=== PATIENT | female | born 1930 | race Caucasian/White ===

== ENCOUNTER 2016-11-25 11:33 | Inpatient (IN) | payer MEDICARE, BC ==
[~2016-11-25] VITALS: Ht 170.2 cm; Wt 84.7 kg
[~2016-11-25 11:33] MED LIST: ACET-1757 PO; ASPI-496 PO; ATOR80TA75 PO; CARV12.52 PO; CHOL200012 PO; DIVA500T2 PO; ESTR0.6246 PO; FLUT1DIS IH; LACT1CAP35 PO; LEVO500T8 PO; LOSA25TA5 PO; METH1TAB21 PO; MIRA50TA PO; NITR0.4T SL; Nifedipine PO; OMEG500C3 PO; OMEP-110 PO; OXCA300T3 PO; PENT100C2 PO; calcium PO
[2016-11-25] MEDS ORDERED: ONDANSETRON ODT 4 MG ONE (11:49)
[2016-11-25] MEDS ORDERED: ONDANSETRON ODT 4 MG PO ONE (12:00)
[2016-11-25 12:41] LABS: BLOOD UREA NITROGEN 16 mg/dL (7-18)
[2016-11-25] MEDS ORDERED: SODIUM CHLORIDE 0.9% 1,000 ML IV ONE (12:45)
[2016-11-25] MEDS ORDERED: SODIUM CHLORIDE FLUSH 10ML SYR IVF ONE (13:00)
[2016-11-25] MEDS ORDERED: GABA100C PO (13:17)
[2016-11-25] MEDS ORDERED: SODIUM CHLORIDE 0.9% 1,000 ML IV SCH (15:18)
[2016-11-25] MEDS ORDERED: LABETALOL 5MG/ML, 20ML IVPush PRN (15:30)
[2016-11-25] MEDS ORDERED: morphine SULFATE 10 MG/ML, 1ML IVPush PRN (15:30)
[2016-11-25] MEDS ORDERED: DOCUSATE 100 MG CAPSULE PO PRN (15:30)
[2016-11-25] MEDS ORDERED: TEMPLATE NON-FORMULARY MED. (Mirabegron** (Myrbetriq**) 50 MG) PO SCH (15:30)
[2016-11-25] MEDS ORDERED: GUAIFENESIN/DM 200-20MG, 10ML UDC PO PRN (15:30)
[2016-11-25] MEDS ORDERED: NITROGLYCERIN 0.4 MG BOTTLE (25 TABS) SL PRN (15:30)
[2016-11-25] MEDS ORDERED: HYDROcodone/APAP 5/325 TABLET PO PRN (15:30)
[2016-11-25] MEDS ORDERED: ONDANSETRON 2MG/ML, 2ML IVPush PRN (15:30)
[2016-11-25] MEDS ORDERED: ACETAMINOPHEN 325 MG TABLET PO PRN (15:30)
[2016-11-25 16:40] LABS: IS PT STATUS REG ER OR PRE ER? NO
[2016-11-25 19:58] VITALS: BP 99/58
[2016-11-25 20:26] LABS: BLOOD UREA NITROGEN 12 mg/dL (7-18)
[2016-11-25 20:30] LABS: IS PT STATUS REG ER OR PRE ER? NO
[2016-11-26] MEDS: OMEPRAZOLE 20 MG CAPSULE.DR PO SCH ×3 (00:32→21:14)
[2016-11-26] MEDS: ATORVASTATIN 80 MG TABLET PO SCH ×2 (00:32→21:14)
[2016-11-26] MEDS: DIVALPROEX 500 MG TABLET.DR PO SCH ×3 (00:32→21:13)
[2016-11-26] MEDS: CARVEDILOL 6.25 MG TABLET PO SCH ×3 (00:33→21:13)
[2016-11-26] MEDS: ENOXAPARIN 40 MG/0.4 ML SQ SCH ×2 (00:33→21:14)
[2016-11-26] MEDS: OXCARBAZEPINE 150 MG TABLET PO SCH ×3 (00:33→21:14)
[2016-11-26] MEDS ORDERED: MIRABEGRON PO SCH (01:00)
[2016-11-26 01:26] VITALS: BP 117/70
[2016-11-26 01:49] LABS: BLOOD UREA NITROGEN 11 mg/dL (7-18)
[2016-11-26 02:10] LABS: IS PT STATUS REG ER OR PRE ER? NO
[2016-11-26] MEDS: metroNIDAZOLE 500 MG TABLET PO SCH ×4 (02:19→21:13)
[2016-11-26 07:55] VITALS: BP_SYST 120; BP_SYST 122; BP_SYST 128; BP_DIAS 68; BP_DIAS 72; BP_DIAS 78
[2016-11-26] MEDS ORDERED: POTASSIUM CHLORIDE 20 MEQ TAB.ER.PRT PO ONE (08:30)
[2016-11-26] MEDS ORDERED: MAGNESIUM SULFATE PMX 4GM/100M 100 ML IV ONE (08:30)
[2016-11-26] MEDS: LOSARTAN 25MG TABLET PO SCH (09:00)
[2016-11-26] MEDS: METHENAMINE HIPPURATE 1 GM TABLET PO SCH (09:00)
[2016-11-26] MEDS: ASPIRIN 81 MG TABLET EC PO SCH (09:00)
[2016-11-26] MEDS: OMEGA-3/FISH OIL CAPSULE PO SCH (09:00)
[2016-11-26] MEDS: ESTROGENS CONJUGATED 0.625 MG TABLET PO SCH (09:00)
[2016-11-26] MEDS: PENTOSAN POLYSULFATE SODIUM 100 MG PO SCH (09:00)
[2016-11-26] MEDS: CHOLECALCIFEROL 1,000 UNIT TABLET PO SCH (09:00)
[2016-11-26] MEDS: FLUTICASONE/VILANTEROL 100-25MCG/INH INH SCH (09:00)
[2016-11-26] MEDS: GABAPENTIN 100 MG CAPSULE PO SCH (09:00)
[2016-11-26] MEDS ORDERED: OMEGA-3/FISH OIL CAPSULE PO SCH (09:00)
[2016-11-26] MEDS ORDERED: TEMPLATE NON-FORMULARY MED. (Pentosan Polysulfate Sodium (Elmiron) 100 MG) PO SCH (09:00)
[2016-11-26 17:52] VITALS: BP 106/64
[2016-11-26 18:43] VITALS: BP 103/62
[2016-11-27 03:42] VITALS: BP 107/64
[2016-11-27 05:38] LABS: BLOOD UREA NITROGEN 9 mg/dL (7-18)
[2016-11-27 07:34] VITALS: BP 135/71
[2016-11-27] MEDS: FLUTICASONE/VILANTEROL 100-25MCG/INH INH SCH (08:35)
[2016-11-27] MEDS: ESTROGENS CONJUGATED 0.625 MG TABLET PO SCH (08:36)
[2016-11-27] MEDS: OXCARBAZEPINE 150 MG TABLET PO SCH ×2 (08:36→20:21)
[2016-11-27] MEDS: LOSARTAN 25MG TABLET PO SCH (08:36)
[2016-11-27] MEDS: CHOLECALCIFEROL 1,000 UNIT TABLET PO SCH (08:36)
[2016-11-27] MEDS: OMEGA-3/FISH OIL CAPSULE PO SCH (08:36)
[2016-11-27] MEDS: OMEPRAZOLE 20 MG CAPSULE.DR PO SCH ×2 (08:37→20:21)
[2016-11-27] MEDS: ASPIRIN 81 MG TABLET EC PO SCH (08:37)
[2016-11-27] MEDS: GABAPENTIN 100 MG CAPSULE PO SCH (08:37)
[2016-11-27] MEDS: metroNIDAZOLE 500 MG TABLET PO SCH ×3 (08:37→20:21)
[2016-11-27] MEDS: METHENAMINE HIPPURATE 1 GM TABLET PO SCH (08:37)
[2016-11-27] MEDS: CARVEDILOL 6.25 MG TABLET PO SCH ×2 (08:38→20:21)
[2016-11-27] MEDS: DIVALPROEX 500 MG TABLET.DR PO SCH ×2 (08:39→20:21)
[2016-11-27] MEDS: PENTOSAN POLYSULFATE SODIUM 100 MG PO SCH (08:50)
[2016-11-27] MEDS ORDERED: SODIUM CHLORIDE 0.9% 1,000 ML IV SCH (11:30)
[2016-11-27 14:00] VITALS: BP 116/69
[2016-11-27 18:49] VITALS: BP 120/72
[2016-11-27] MEDS: ENOXAPARIN 40 MG/0.4 ML SQ SCH (20:20)
[2016-11-27] MEDS: ATORVASTATIN 80 MG TABLET PO SCH (20:21)
[2016-11-28 02:00] VITALS: BP 115/68
[2016-11-28 05:55] LABS: BLOOD UREA NITROGEN 11 mg/dL (7-18)
[2016-11-28 07:51] VITALS: BP 118/63
[2016-11-28] MEDS: PENTOSAN POLYSULFATE SODIUM 100 MG PO SCH (09:00)
[2016-11-28] MEDS: ESTROGENS CONJUGATED 0.625 MG TABLET PO SCH (09:17)
[2016-11-28] MEDS: OMEPRAZOLE 20 MG CAPSULE.DR PO SCH ×2 (09:17→20:21)
[2016-11-28] MEDS: FLUTICASONE/VILANTEROL 100-25MCG/INH INH SCH (09:17)
[2016-11-28] MEDS: OXCARBAZEPINE 150 MG TABLET PO SCH ×2 (09:18→20:21)
[2016-11-28] MEDS: CARVEDILOL 6.25 MG TABLET PO SCH ×2 (09:18→20:21)
[2016-11-28] MEDS: LOSARTAN 25MG TABLET PO SCH (09:18)
[2016-11-28] MEDS: OMEGA-3/FISH OIL CAPSULE PO SCH (09:18)
[2016-11-28] MEDS: DIVALPROEX 500 MG TABLET.DR PO SCH ×2 (09:18→20:21)
[2016-11-28] MEDS: ASPIRIN 81 MG TABLET EC PO SCH (09:20)
[2016-11-28] MEDS: metroNIDAZOLE 500 MG TABLET PO SCH ×3 (09:20→20:21)
[2016-11-28] MEDS: GABAPENTIN 100 MG CAPSULE PO SCH (09:20)
[2016-11-28] MEDS: METHENAMINE HIPPURATE 1 GM TABLET PO SCH (09:20)
[2016-11-28] MEDS: CHOLECALCIFEROL 1,000 UNIT TABLET PO SCH (09:21)
[2016-11-28] MEDS ORDERED: SODIUM CHLORIDE 0.9% 1,000 ML IV SCH (10:00)
[2016-11-28] MEDS: SODIUM CHLORIDE 1 GM TABLET PO SCH ×3 (10:16→20:20)
[2016-11-28 14:12] VITALS: BP 118/73
[2016-11-28 19:00] VITALS: BP 116/68
[2016-11-28] MEDS: ATORVASTATIN 80 MG TABLET PO SCH (20:21)
[2016-11-28] MEDS: ENOXAPARIN 40 MG/0.4 ML SQ SCH (20:22)
[2016-11-29 00:02] VITALS: BP 108/66
[2016-11-29 06:38] LABS: BLOOD UREA NITROGEN 10 mg/dL (7-18)
[2016-11-29 08:10] VITALS: BP 136/76
[2016-11-29] MEDS: PENTOSAN POLYSULFATE SODIUM 100 MG PO SCH (09:00)
[2016-11-29] MEDS: FLUTICASONE/VILANTEROL 100-25MCG/INH INH SCH (09:34)
[2016-11-29] MEDS: LOSARTAN 25MG TABLET PO SCH (09:35)
[2016-11-29] MEDS: GABAPENTIN 100 MG CAPSULE PO SCH (09:35)
[2016-11-29] MEDS: OXCARBAZEPINE 150 MG TABLET PO SCH (09:35)
[2016-11-29] MEDS: DIVALPROEX 500 MG TABLET.DR PO SCH (09:36)
[2016-11-29] MEDS: metroNIDAZOLE 500 MG TABLET PO SCH ×2 (09:37→15:14)
[2016-11-29] MEDS: CHOLECALCIFEROL 1,000 UNIT TABLET PO SCH (09:37)
[2016-11-29] MEDS: ASPIRIN 81 MG TABLET EC PO SCH (09:37)
[2016-11-29] MEDS: SODIUM CHLORIDE 1 GM TABLET PO SCH ×2 (09:38→15:14)
[2016-11-29] MEDS: CARVEDILOL 6.25 MG TABLET PO SCH (09:38)
[2016-11-29] MEDS: OMEPRAZOLE 20 MG CAPSULE.DR PO SCH (09:38)
[2016-11-29] MEDS: ESTROGENS CONJUGATED 0.625 MG TABLET PO SCH (09:39)
[2016-11-29] MEDS: OMEGA-3/FISH OIL CAPSULE PO SCH (09:39)
[2016-11-29] MEDS: METHENAMINE HIPPURATE 1 GM TABLET PO SCH (09:41)
[2016-11-29] MEDS ORDERED: MAGNESIUM SULFATE PMX 4GM/100M 100 ML IV ONE (10:30)
[2016-11-29 12:50] VITALS: BP 106/66
[2016-11-29] MEDS ORDERED: METR500T PO (13:52)
[2016-11-29] MEDS ORDERED: DOCU-30 PO (13:52)
[2016-11-29] MEDS ORDERED: SODI1TAB PO (13:52)
== END 2016-11-29 17:04 | DRG 372 ==
LOC: ED 13:11 → EDIP 13:38 → 4EST 15:25
PROVIDERS: ADMIT Internal Medicine; ATTEND Internal Medicine
DX: A04.7 Enterocolitis due to Clostridium difficile (principal); E87.1 Hypo-osmolality and hyponatremia; I50.22 Chronic systolic (congestive) heart failure; E83.42 Hypomagnesemia; E87.6 Hypokalemia; E78.5 Hyperlipidemia, unspecified; Z88.8 Allergy status to other drugs, medicaments and biological substances; E86.1 Hypovolemia; G40.909 Epilepsy, unspecified, not intractable, without status epilepticus; G89.11 Acute pain due to trauma; G89.29 Other chronic pain; H54.7 Unspecified visual loss; I11.0 Hypertensive heart disease with heart failure; K21.9 Gastro-esophageal reflux disease without esophagitis; K22.4 Dyskinesia of esophagus; M51.36 Other intervertebral disc degeneration, lumbar region; S39.012A Strain of muscle, fascia and tendon of lower back, initial encounter; W18.30XA Fall on same level, unspecified, initial encounter; Z79.890 Hormone replacement therapy; Z87.440 Personal history of urinary (tract) infections; Z90.710 Acquired absence of both cervix and uterus; Z96.653 Presence of artificial knee joint, bilateral; I44.7 Left bundle-branch block, unspecified
CPT/HCPCS: 36415; 72110; 80048; 80061; 81001; 82533; 83735; 84100; 84443; 84484; 85025; 87077; 87086; 87186; 87324; 93005; 93306; 96360; 96361; J1650; Q0162; J3475; J7030

== ENCOUNTER → 2017-02-22 | Outpatient (CLI) | payer MEDICARE, BC ==
[~2017-02-22] MED LIST changes: +ATOR-2 PO; -ATOR80TA75 PO; -CHOL200012 PO; +CHOL200074 PO; +DOCU-131 PO; +GABA100C PO; +METR500T PO; +SODI1TAB PO
== END | disposition home or self-care (01) ==
LOC: CFH 13:28 → EDSTATUS 13:30
PROVIDERS: ATTEND Physical Medicine & Rehabilitation
DX: M51.36 Other intervertebral disc degeneration, lumbar region (principal); M41.86 Other forms of scoliosis, lumbar region; M47.896 Other spondylosis, lumbar region; M43.16 Spondylolisthesis, lumbar region; Z85.3 Personal history of malignant neoplasm of breast
CPT/HCPCS: 72131

== ENCOUNTER → 2017-06-07 | Outpatient (CLI) | payer MEDICARE, BC | END | disposition home or self-care (01) | LOC: CFH 12:12 | PROVIDERS: ATTEND Internal Medicine | DX: J84.10 Pulmonary fibrosis, unspecified (principal); M47.814 Spondylosis without myelopathy or radiculopathy, thoracic region; M19.011 Primary osteoarthritis, right shoulder; M19.012 Primary osteoarthritis, left shoulder | CPT/HCPCS: 71020 ==

== ENCOUNTER 2017-12-08 12:24 | Inpatient (IN) | payer MEDICARE, BC ==
[~2017-12-08] VITALS: Ht 170.2 cm; Wt 87.2 kg
[2017-12-08] MEDS ORDERED: MORPHINE SULFATE 4 MG/ML, 1ML ONE ×3 (12:48→14:31)
[2017-12-08] MEDS ORDERED: ONDANSETRON 2MG/ML, 2ML ONE (12:48)
[2017-12-08] MEDS: MORPHINE SULFATE 4 MG/ML, 1ML IVPush PRN ×2 (12:50→13:42)
[2017-12-08] MEDS ORDERED: SODIUM CHLORIDE FLUSH 10ML SYR IVF ONE (13:00)
[2017-12-08] MEDS ORDERED: ONDANSETRON 2MG/ML, 2ML IVPush ONE (13:00)
[2017-12-08] MEDS ORDERED: PLEASE ENTER HEIGHT AND WEIGHT MC SCH (13:00)
[2017-12-08 13:09] LABS: BASOPHILS # (AUTO) 0.01 x10^3/uL (0-0.1); BASOPHILS % (AUTO) 0 % (0-1); EOSINOPHILS # (AUTO) 0.06 x10^3/uL (0-0.4); EOSINOPHILS % (AUTO) 1 % (1-7); LYMPHOCYTES # (AUTO) 1.89 x10^3/uL (1-3.4); LYMPHOCYTES % (AUTO) 28 % (22-44); MD NO; MEAN CORPUSCULAR HEMOGLOBIN 30.8 pg (27.0-34.8); MEAN CORPUSCULAR HGB CONC 33.4 g/dL (32.4-35.8); MEAN CORPUSCULAR VOLUME 92.3 fL (80-100); MEAN PLATELET VOLUME 8.3 fL (7.4-10.4); MONOCYTES # (AUTO) 0.41 x10^3/uL (0.2-0.8); MONOCYTES % (AUTO) 6 % (2-9); NEUTROPHILS % (AUTO) 65 % (42-75); PLATELET COUNT 124 x10^3/uL (130-400); RED BLOOD COUNT 4.58 x10^6/uL (3.82-5.3); RED CELL DISTRIBUTION WIDTH 13.9 % (9.6-15.2)
[2017-12-08 13:18] LABS: ALBUMIN 3.1 g/dL (3.4-5.0); ANION GAP 8 mmol/L (5-15); CALCIUM 8.3 mg/dL (8.5-10.1); CHLORIDE 97 mmol/L (98-107)
[2017-12-08 13:23] LABS: ALANINE AMINOTRANSFERASE 14 U/L (12-78); ALKALINE PHOSPHATASE 45 U/L (45-117); BILIRUBIN,TOTAL 0.5 mg/dL (0.2-1.0); CREATININE 0.64 mg/dL (0.55-1.02); TOTAL PROTEIN 5.8 g/dL (6.4-8.2)
[2017-12-08] MEDS ORDERED: PRO AIR (13:53)
[2017-12-08] MEDS ORDERED: ATOR40TA78 PO (13:53)
[2017-12-08] MEDS ORDERED: OMEP20TA62 PO (13:53)
[2017-12-08 14:10] LABS: INTERNATIONAL NORMALIZED RATIO 1.05 (0.93-1.1); PROTHROMBIN TIME 10.8 Seconds (9.6-11.5)
[2017-12-08] MEDS ORDERED: MORPHINE SULFATE 4 MG/ML, 1ML IVPush ONE (14:30)
[2017-12-08] MEDS ORDERED: LABETALOL 5MG/ML, 20ML IVPush PRN (15:00)
[2017-12-08] MEDS ORDERED: ONDANSETRON ODT 4 MG PO PRN (15:00)
[2017-12-08] MEDS ORDERED: POLYETHYLENE GLYCOL 17 GM PACKET PO PRN (15:00)
[2017-12-08] MEDS ORDERED: ONDANSETRON 2MG/ML, 2ML IVPush PRN (15:00)
[2017-12-08] MEDS ORDERED: TEMPLATE NON-FORMULARY MED. (Mirabegron** (Myrbetriq**) 50 MG) PO SCH (15:30)
[2017-12-08] MEDS ORDERED: NITROGLYCERIN 0.4 MG BOTTLE (25 TABS) SL PRN (15:30)
[2017-12-08 15:54] LABS: FREE T4 (FREE THYROXINE) 0.88 ng/dL (0.76-1.46)
[2017-12-08 16:10] VITALS: BP 123/75
[2017-12-08] MEDS: morphine SULFATE 10 MG/ML, 1ML IVPush PRN ×2 (17:26→20:52)
[2017-12-08 19:27] VITALS: BP 129/80
[2017-12-08] MEDS: CARVEDILOL 6.25 MG TABLET PO SCH (20:51)
[2017-12-08] MEDS: DIVALPROEX 500 MG TABLET.DR PO SCH (20:52)
[2017-12-08] MEDS: OXCARBAZEPINE 300MG TABLET PO SCH (20:52)
[2017-12-08] MEDS: ATORVASTATIN 40 MG TABLET PO SCH (20:52)
[2017-12-08] MEDS ORDERED: OMEPRAZOLE 20 MG CAPSULE.DR PO SCH (21:00)
[2017-12-08] MEDS ORDERED: ATORVASTATIN 80 MG TABLET PO SCH (21:00)
[2017-12-09 03:13] VITALS: BP 116/65
[2017-12-09] MEDS: morphine SULFATE 10 MG/ML, 1ML IVPush PRN ×2 (03:39→10:15)
[2017-12-09 05:15] LABS: BASOPHILS # (AUTO) 0.02 x10^3/uL (0-0.1); BASOPHILS % (AUTO) 0 % (0-1); EOSINOPHILS # (AUTO) 0.06 x10^3/uL (0-0.4); EOSINOPHILS % (AUTO) 1 % (1-7); LYMPHOCYTES # (AUTO) 1.75 x10^3/uL (1-3.4); LYMPHOCYTES % (AUTO) 20 % (22-44); MD NO; MEAN CORPUSCULAR HEMOGLOBIN 31.1 pg (27.0-34.8); MEAN CORPUSCULAR HGB CONC 33.8 g/dL (32.4-35.8); MEAN PLATELET VOLUME 8.3 fL (7.4-10.4); MONOCYTES # (AUTO) 0.59 x10^3/uL (0.2-0.8); MONOCYTES % (AUTO) 7 % (2-9); NEUTROPHILS # (AUTO) 6.31 x10^3/uL (1.8-6.8); NEUTROPHILS % (AUTO) 72 % (42-75); PLATELET COUNT 117 x10^3/uL (130-400); RED BLOOD COUNT 4.47 x10^6/uL (3.82-5.3); RED CELL DISTRIBUTION WIDTH 13.7 % (9.6-15.2)
[2017-12-09 05:23] LABS: CHLORIDE 96 mmol/L (98-107)
[2017-12-09 05:39] LABS: ALANINE AMINOTRANSFERASE 14 U/L (12-78); ALBUMIN 2.9 g/dL (3.4-5.0); ALKALINE PHOSPHATASE 42 U/L (45-117); ANION GAP 8 mmol/L (5-15); BILIRUBIN,TOTAL 0.6 mg/dL (0.2-1.0); CALCIUM 8.1 mg/dL (8.5-10.1); CREATININE 0.64 mg/dL (0.55-1.02); TOTAL PROTEIN 5.3 g/dL (6.4-8.2)
[2017-12-09 08:02] VITALS: BP 107/55
[2017-12-09] MEDS: OMEPRAZOLE 20 MG CAPSULE.DR PO SCH (09:00)
[2017-12-09] MEDS: GABAPENTIN 100 MG CAPSULE PO SCH (09:00)
[2017-12-09] MEDS ORDERED: ASPIRIN 81 MG TABLET EC PO SCH (09:00)
[2017-12-09] MEDS: LOSARTAN 50MG TABLET PO SCH (09:00)
[2017-12-09] MEDS: SENNA/DOCUSATE TABLET PO SCH (09:00)
[2017-12-09] MEDS: TEMPLATE NON-FORMULARY MED. (Mirabegron** (Myrbetriq**) 50 MG) PO SCH (09:00)
[2017-12-09] MEDS: DIVALPROEX 500 MG TABLET.DR PO SCH ×2 (10:07→21:41)
[2017-12-09] MEDS: CARVEDILOL 6.25 MG TABLET PO SCH ×2 (10:08→21:41)
[2017-12-09] MEDS: OXCARBAZEPINE 300MG TABLET PO SCH ×2 (10:08→21:41)
[2017-12-09] MEDS ORDERED: LABETALOL 5MG/ML, 20ML IV PRN (11:30)
[2017-12-09] MEDS ORDERED: OXYcodone 5 MG/5 ML ORAL.SOL UDC PO PRN (11:30)
[2017-12-09] MEDS ORDERED: ONDANSETRON ODT 8 MG PO PRN (11:30)
[2017-12-09] MEDS ORDERED: PROMETHAZINE 12.5 MG SUPP PR PRN (11:30)
[2017-12-09] MEDS ORDERED: FENTANYL PF 100 MCG/2ML IV PRN (11:30)
[2017-12-09] MEDS ORDERED: HYDROmorphone 1 MG/ML, 1ML IV PRN (11:30)
[2017-12-09] MEDS ORDERED: ACETAMINOPHEN 325 MG TABLET PO PRN (11:30)
[2017-12-09] MEDS ORDERED: MORPHINE SULFATE 4 MG/ML, 1ML IVPush PRN (11:30)
[2017-12-09] MEDS ORDERED: hydrALAzine 20 MG/ML, 1ML IV PRN (11:30)
[2017-12-09] MEDS ORDERED: NEOSPORIN OINT, 15GM ONE (12:02)
[2017-12-09] MEDS ORDERED: FENTANYL PF 250 MCG/5ML ONE (12:12)
[2017-12-09] MEDS ORDERED: ROCURONIUM 10MG/ML,5ML ONE ×2 (12:38→13:44)
[2017-12-09] MEDS ORDERED: TRANEXAMIC ACID 100 MG/ML, 10ML ONE (12:46)
[2017-12-09] MEDS ORDERED: CEFAZOLIN 1,000 MG ONE (12:48)
[2017-12-09] MEDS ORDERED: DEXAMETHASONE 4 MG/ML, 1ML ONE (12:55)
[2017-12-09] MEDS ORDERED: ONDANSETRON 2MG/ML, 2ML ONE (13:44)
[2017-12-09] MEDS ORDERED: PROPOFOL 10 MG/ML, 20ML ONE (13:44)
[2017-12-09] MEDS ORDERED: OXYcodone 5 MG/5 ML ORAL.SOL UDC ONE (14:39)
[2017-12-09] MEDS ORDERED: MORPHINE SULFATE 4 MG/ML, 1ML ONE (14:53)
[2017-12-09] MEDS ORDERED: ALBUTEROL SULFATE 2.5 MG/3 ML ONE (15:00)
[2017-12-09] MEDS ORDERED: LORazepam 2 MG/ML, 1ML ONE (15:24)
[2017-12-09 15:45] VITALS: BP 106/69
[2017-12-09] MEDS ORDERED: LORazepam 2 MG/ML, 1ML IVPush ONE (16:00)
[2017-12-09] MEDS: FLUTICASONE/VILANTEROL 100-25MCG/INH INH SCH (17:00)
[2017-12-09 19:35] VITALS: BP 105/68
[2017-12-09] MEDS: CEFAZOLIN PMX 1GM/50ML 50 ML IVPB SCH (21:40)
[2017-12-09] MEDS: ATORVASTATIN 40 MG TABLET PO SCH (21:41)
[2017-12-09 23:30] VITALS: BP 110/67
[2017-12-10 03:07] VITALS: BP 94/55
[2017-12-10] MEDS: morphine SULFATE 10 MG/ML, 1ML IVPush PRN (05:13)
[2017-12-10] MEDS: CEFAZOLIN PMX 1GM/50ML 50 ML IVPB SCH (05:19)
[2017-12-10 05:20] LABS: BASOPHILS # (AUTO) 0.02 x10^3/uL (0-0.1); BASOPHILS % (AUTO) 0 % (0-1); EOSINOPHILS # (AUTO) 0.03 x10^3/uL (0-0.4); EOSINOPHILS % (AUTO) 0 % (1-7); LYMPHOCYTES # (AUTO) 1.86 x10^3/uL (1-3.4); LYMPHOCYTES % (AUTO) 19 % (22-44); MD NO; MEAN CORPUSCULAR HEMOGLOBIN 31.5 pg (27.0-34.8); MEAN CORPUSCULAR HGB CONC 34.3 g/dL (32.4-35.8); MEAN CORPUSCULAR VOLUME 91.7 fL (80-100); MEAN PLATELET VOLUME 8.4 fL (7.4-10.4); MONOCYTES # (AUTO) 0.76 x10^3/uL (0.2-0.8); MONOCYTES % (AUTO) 8 % (2-9); NEUTROPHILS # (AUTO) 7.09 x10^3/uL (1.8-6.8); NEUTROPHILS % (AUTO) 73 % (42-75); PLATELET COUNT 102 x10^3/uL (130-400); RED BLOOD COUNT 4.21 x10^6/uL (3.82-5.3); RED CELL DISTRIBUTION WIDTH 13.9 % (9.6-15.2)
[2017-12-10 05:21] LABS: CALCIUM 8.3 mg/dL (8.5-10.1); CHLORIDE 94 mmol/L (98-107)
[2017-12-10 05:25] LABS: ALBUMIN 2.8 g/dL (3.4-5.0); ANION GAP 7 mmol/L (5-15); CREATININE 0.59 mg/dL (0.55-1.02)
[2017-12-10] MEDS: FLUTICASONE/VILANTEROL 100-25MCG/INH INH SCH (08:56)
[2017-12-10] MEDS: DIVALPROEX 500 MG TABLET.DR PO SCH ×2 (08:57→21:10)
[2017-12-10] MEDS: OXCARBAZEPINE 300MG TABLET PO SCH ×2 (08:57→21:11)
[2017-12-10] MEDS: SENNA/DOCUSATE TABLET PO SCH (08:57)
[2017-12-10] MEDS: OMEPRAZOLE 20 MG CAPSULE.DR PO SCH (08:57)
[2017-12-10] MEDS: GABAPENTIN 100 MG CAPSULE PO SCH (08:57)
[2017-12-10] MEDS: TEMPLATE NON-FORMULARY MED. (Mirabegron** (Myrbetriq**) 50 MG) PO SCH (09:00)
[2017-12-10 09:17] VITALS: BP 98/59
[2017-12-10] MEDS: CARVEDILOL 6.25 MG TABLET PO SCH ×2 (09:30→21:00)
[2017-12-10] MEDS: LOSARTAN 50MG TABLET PO SCH (09:32)
[2017-12-10 09:34] VITALS: BP 101/65
[2017-12-10 14:27] VITALS: BP 95/58
[2017-12-10] MEDS: HYDROcodone/APAP 5/325 TABLET PO PRN (14:56)
[2017-12-10] MEDS ORDERED: LACTATED RINGERS 500 ML IVBOLUS ONE (18:00)
[2017-12-10 19:45] VITALS: BP 108/64
[2017-12-10 20:19] VITALS: BP 91/54
[2017-12-10] MEDS: ASPIRIN 81 MG TABLET EC PO SCH (21:11)
[2017-12-10] MEDS: ATORVASTATIN 40 MG TABLET PO SCH (21:11)
[2017-12-11 03:16] VITALS: BP 96/57
[2017-12-11] MEDS ORDERED: LACTATED RINGERS 500 ML IVBOLUS ONE (03:30)
[2017-12-11] MEDS: ASPIRIN 81 MG TABLET EC PO SCH ×2 (06:41→18:49)
[2017-12-11 07:30] VITALS: BP_SYST 105; BP_SYST 97; BP_DIAS 57; BP_DIAS 66
[2017-12-11] MEDS: SENNA/DOCUSATE TABLET PO SCH (08:58)
[2017-12-11] MEDS: OXCARBAZEPINE 300MG TABLET PO SCH ×2 (08:58→21:08)
[2017-12-11] MEDS: OMEPRAZOLE 20 MG CAPSULE.DR PO SCH (08:58)
[2017-12-11] MEDS: DIVALPROEX 500 MG TABLET.DR PO SCH ×2 (08:58→21:08)
[2017-12-11] MEDS: CARVEDILOL 3.125 MG TABLET PO SCH ×2 (08:59→20:34)
[2017-12-11] MEDS: GABAPENTIN 100 MG CAPSULE PO SCH (09:00)
[2017-12-11] MEDS: LOSARTAN 25MG TABLET PO SCH (09:00)
[2017-12-11] MEDS: TEMPLATE NON-FORMULARY MED. (Mirabegron** (Myrbetriq**) 50 MG) PO SCH (09:00)
[2017-12-11] MEDS: FLUTICASONE/VILANTEROL 100-25MCG/INH INH SCH (09:05)
[2017-12-11 13:17] VITALS: BP 102/63
[2017-12-11] MEDS ORDERED: CARVEDILOL 3.125 MG TABLET PO ONE (15:00)
[2017-12-11] MEDS ORDERED: FUROSEMIDE 20 MG/2 ML IV ONE (15:30)
[2017-12-11] MEDS: HYDROcodone/APAP 5/325 TABLET PO PRN (16:19)
[2017-12-11 19:18] VITALS: BP 94/56
[2017-12-11] MEDS: ATORVASTATIN 40 MG TABLET PO SCH (21:08)
[2017-12-12 02:18] VITALS: BP 110/64
[2017-12-12] MEDS: ASPIRIN 81 MG TABLET EC PO SCH (06:17)
[2017-12-12 06:57] VITALS: BP 110/72
[2017-12-12] MEDS ORDERED: LOSA25TA5 PO (07:12)
[2017-12-12 07:43] LABS: ALBUMIN 2.1 g/dL (3.4-5.0); ANION GAP 8 mmol/L (5-15); CALCIUM 7.7 mg/dL (8.5-10.1); CHLORIDE 91 mmol/L (98-107); CREATININE 0.41 mg/dL (0.55-1.02)
[2017-12-12 08:03] LABS: MEAN CORPUSCULAR HEMOGLOBIN 31.1 pg (27.0-34.8); MEAN CORPUSCULAR HGB CONC 33.9 g/dL (32.4-35.8); MEAN CORPUSCULAR VOLUME 91.8 fL (80-100); RED BLOOD COUNT 3.69 x10^6/uL (3.82-5.3); RED CELL DISTRIBUTION WIDTH 13.7 % (9.6-15.2)
[2017-12-12 08:06] LABS: BASOPHILS # (AUTO) 0.03 x10^3/uL (0-0.1); BASOPHILS % (AUTO) 0 % (0-1); EOSINOPHILS # (AUTO) 0.14 x10^3/uL (0-0.4); EOSINOPHILS % (AUTO) 2 % (1-7); LYMPHOCYTES # (AUTO) 1.16 x10^3/uL (1-3.4); LYMPHOCYTES % (AUTO) 13 % (22-44); MD SCAN; MEAN PLATELET VOLUME 8.8 fL (7.4-10.4); MONOCYTES # (AUTO) 0.65 x10^3/uL (0.2-0.8); MONOCYTES % (AUTO) 8 % (2-9); NEUTROPHILS # (AUTO) 6.67 x10^3/uL (1.8-6.8); NEUTROPHILS % (AUTO) 77 % (42-75); PLATELET COUNT 96 x10^3/uL (130-400)
[2017-12-12] MEDS: TEMPLATE NON-FORMULARY MED. (Mirabegron** (Myrbetriq**) 50 MG) PO SCH (09:36)
[2017-12-12] MEDS: DIVALPROEX 500 MG TABLET.DR PO SCH (09:42)
[2017-12-12] MEDS: SENNA/DOCUSATE TABLET PO SCH (09:42)
[2017-12-12] MEDS: CARVEDILOL 3.125 MG TABLET PO SCH (09:42)
[2017-12-12] MEDS: LOSARTAN 25MG TABLET PO SCH (09:42)
[2017-12-12] MEDS: OXCARBAZEPINE 300MG TABLET PO SCH (09:42)
[2017-12-12] MEDS: OMEPRAZOLE 20 MG CAPSULE.DR PO SCH (09:42)
[2017-12-12] MEDS: HYDROcodone/APAP 5/325 TABLET PO PRN (09:42)
[2017-12-12] MEDS: GABAPENTIN 100 MG CAPSULE PO SCH (09:42)
[2017-12-12] MEDS: FLUTICASONE/VILANTEROL 100-25MCG/INH INH SCH (09:43)
[2017-12-12] MEDS ORDERED: ASPI-496 PO (10:41)
[2017-12-12 12:15] VITALS: BP 101/60
== END 2017-12-12 13:00 | DRG 469 ==
LOC: ED 14:22 → EDIP 14:26 → 4NOR 15:42
PROVIDERS: ADMIT Hospitalist; ATTEND Hospitalist
PROC: 0SRR0J9 Replacement of Right Hip Joint, Femoral Surface with Synthetic Substitute, Cemented, Open Approach (ICD-10-PCS; principal; 2017-12-11)
DX: S72.091A Other fracture of head and neck of right femur, initial encounter for closed fracture (principal); J96.01 Acute respiratory failure with hypoxia; E43 Unspecified severe protein-calorie malnutrition; J18.9 Pneumonia, unspecified organism; E87.1 Hypo-osmolality and hyponatremia; I50.22 Chronic systolic (congestive) heart failure; J98.11 Atelectasis; Y93.9 Activity, unspecified; Y92.9 Unspecified place or not applicable; Y99.9 Unspecified external cause status; Z68.30 Body mass index [BMI] 30.0-30.9, adult; Y93.89 Activity, other specified; Y92.89 Other specified places as the place of occurrence of the external cause; Y99.8 Other external cause status; D64.9 Anemia, unspecified; D69.6 Thrombocytopenia, unspecified; E78.5 Hyperlipidemia, unspecified; G40.909 Epilepsy, unspecified, not intractable, without status epilepticus; I11.0 Hypertensive heart disease with heart failure; I44.7 Left bundle-branch block, unspecified; K21.9 Gastro-esophageal reflux disease without esophagitis; K22.4 Dyskinesia of esophagus; N32.81 Overactive bladder; V48.4XXA Person boarding or alighting a car injured in noncollision transport accident, initial encounter; Z79.899 Other long term (current) drug therapy; Z82.3 Family history of stroke; Z82.49 Family history of ischemic heart disease and other diseases of the circulatory system; Z86.19 Personal history of other infectious and parasitic diseases; Z90.710 Acquired absence of both cervix and uterus; Z96.641 Presence of right artificial hip joint; Z96.653 Presence of artificial knee joint, bilateral
CPT/HCPCS: 36415; 71045; 72170; 80048; 80053; 82040; 83735; 84100; 84439; 84443; 85025; 85610; 85730; 93005; C1713; J0690; J1100; J2405; J2704; J3010; J7120; C1762; C1776; J1940; J2060; J2270